=== PATIENT | female | born 1955 | race Caucasian/White ===

== ENCOUNTER 2018-05-17 22:17 | Inpatient (IN) | payer BC ==
[~2018-05-17 22:17] MED LIST: ISOVUE-370 76%-LOCM 1 ML ONE
[2018-05-17] MEDS ORDERED: Ondansetron PF 4 MG/2 ML Vial ONE (22:56)
[2018-05-17] MEDS ORDERED: Morphine 4 MG/ML VIAL ONE (22:56)
[2018-05-17 22:59] LABS: #Eosinphils 0.3 thou/uL (0.0-0.7); #Lymphocytes 1.2 thou/uL (1.20-3.40); #Monocytes 0.8 thou/uL (0.11-0.59); #Neutrophils 9.7 thou/uL (1.40-6.50); %Basophils 0.4 % (0.0-1.0); %Eosinophils 2.3 % (0.0-10.0); %Lymphocytes 9.7 % (21.0-51.0); %Monocytes 6.4 % (0.0-10.0); %Neutrophils 81.2 % (42.0-75.0); Hemoglobin 13.6 g/dL (12.0-16.0); Mean Corpuscular HGB CONC 33.2 g/dL (32.0-36.0); Mean Corpuscular Hemoglobin 29.7 pg (27.0-31.0); Mean Corpuscular Volume 89.4 fL (78.0-98.0); Mean Platelet Volume 7.1 fL (7.4-10.4); Platelet Count 331 thou/uL (130-400); RBC Distribution Width 12.3 % (11.5-14.5); Red Blood Cell (RBC) Count 4.59 mill/uL (4.20-5.40)
[2018-05-17 23:18] LABS: ALT (SGPT) 42 U/L (8-55); AST (SGOT) 26 U/L (5-34); Albumin 4.6 g/dL (3.4-4.8); Alkaline Phosphatase 115 U/L (40-150); Anion Gap 15 mmol/L (10-20); BUN (Urea Nitrogen) 9 mg/dL (9.8-20.1); Bilirubin, Total 0.7 mg/dL (0.2-1.2); Calc. Creatinine Clearance 0 mL/min (70-130); Carbon Dioxide 24 mmol/L (23-31); Chloride 100 mmol/L (98-107); Estimated GFR-MDRD 72; Globulin 2.8 g/dL (2.4-3.5); Glucose 146 mg/dL (80-115); Potassium 3.9 mmol/L (3.5-5.1); Protein, Total 7.4 g/dL (6.0-8.3); Sodium 135 mmol/L (136-145)
[2018-05-17 23:33] LABS: Lipase 5766 U/L (8-78)
[2018-05-17 23:34] LABS: Bilirubin Negative (Negative); Blood, Urine Negative (Negative); Clarity CLEAR (Clear); Glucose, Urine (Dipstick) Negative (Negative); Leukocyte Moderate (Negative); Nitrite Negative (Negative); Protein, Urine (Dipstick) Trace mg/dL (Neg-Trace); Specific Gravity, Urine 1.013 (1.002-1.036); Urobilinogen 0.2 mg/dL (0.2-1.0)
[2018-05-17 23:37] LABS: Bacteria/HPF None Seen HPF (None Seen); Hyaline Casts/LPF 4-6 HYALINE CAST LPF (0-3 Hyaline); RBC/HPF 0-3 HPF (0-3); Squamous Epithelial 0-3 HPF (0-3); WBC/HPF 21-50 HPF (0-3)
--- NOTE | 2018-05-17 23:56 | CT ---
CT OF THE ABDOMEN AND PELVIS WITH IV CONTRAST 05/17/18 INDICATION: History of abdominal pain. FINDINGS: There is mild hazy opacity seen surrounding the pancreas suspicious for pancreatitis. There is mild fatty liver. There is moderate hiatal hernia. Adrenal glands, spleen, and kidneys appea r within normal limits. No drainable fluid collection is evident. There is mild fluid distention of a few loops of small bowel and colon which are nonspecific. There i s scattered diverticula involving the colon. IMPRESSION: 1. Findings suspicious for noncomplicated acute pancreatitis. Recommend correlation with clinica l exam. 2. Fatty liver. 3. Moderate hiatal hernia. 4. Post cholecystectomy. 5. Colonic diverticulosis. POS: [facility]
[2018-05-18] MEDS ORDERED: Ondansetron PF 4 MG/2 ML Vial IVP PRN (01:31)
[2018-05-18] MEDS ORDERED: Morphine 2 MG/ML SYRINGE SLOW IVP PRN (01:41)
--- NOTE | 2018-05-18 01:44 | PDOC.FPRHP ---
- History of Present Illness Chief Complaint: abdominal pain History of Present Illness: Patient is a 62YOF w/ a PMH significant for a previous episode of pancreatitis approximately 4 years ago 2/2 unknown causes who presented to the ED with a CC of abdominal pain that began 2 days ago. The patient reports that she was in her usual state of health until Wednesday morning when she to feel sharp, upper abdominal pain after eating that morning. She stated that the pain was definitely worsened by eating so she limited her PO intake but tried eating again yesterday morning and again had an episode of severe 9/10 upper abdominal pain after eating some peaches and drinking water for breakfast. She then had her take her to an urgent care where she was told she was only constipated and sent home. She then took some milk of Mg at home and had some diarrhea after that and the abdominal pain continued so she came to the ED for further evaluation. She reports some associated nausea but denies any vomiting. She also denies any constipation, fever or chills. Of note, the patient states she was admitted for pancreatitis about 4 years ago and stated that they never figured out what caused her first episode. She denies any EtOH use or FH of pancreatitis and is on crestor for HLD. She has also had a cholecystectomy. ED Course: 4mg IV morphine, 4mg IV zofran, 1L NS - Allergies/Adverse Reactions Allergies Allergy/AdvReac Type Severity Reaction Status Date / Time No Known Allergies Allergy Verified 05/18/18 02:35 - History PMHx: HLD, GERD, hiatal hernia, seasonal allergies, h/o pancreatitis PSHx: cholecystectomy, hysterectomy, ex lap for endometriosis, R-sided lumpectomy, uvulopalatopharyngoplasty, rhinoplasty FHx: Mother: HTN & HLD Social: No EtOH, tobacco or drug use. Lives in [place] with her . 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 - Review of Systems General: reports: weight/appetite/sleep changes. denies: fever/chills Eyes: denies: eye pain, vision changes ENT: reports: other (no sore throat). denies: nasal congestion Respiratory: denies: cough, shortness of breath Cardiovascular: denies: chest pain, palpitation Gastrointestinal: reports: nausea, diarrhea, abdominal pain. denies: vomiting, constipation Genitourinary: reports: other (no urinary frequency). denies: dysuria Skin: denies: rashes Musculoskeletal: denies: pain, arthritis/arthralgias Neurological: denies: numbness, weakness Psychological: denies: anxiety, depression - Vital signs BP: 102/63 HR: 74 RR: 15 Tmax: 98.2F Pox: 97% on RA Wt: 79kg - Physical Exam Constitutional: NAD, awake, alert and oriented, well developed HEENT: normocephalic and atraumatic, grossly normal vision, grossly normal hearing, oropharynx clear, good dention, other (dry mucus membranes) Neck: supple, FROM Heart: RRR, normal S1/S2, pulses present, no edema Lungs: CTAB, no respiratory distress, good air movement, no rales/rhonchi, no wheezing, no retractions Abdomen: soft, no masses/distention, no hernias, other (TTP all across upper abdomen w/ no guarding or rebound; hypoactive bowel sounds) Musculoskeletal: normal structure, ROM grossly normal Neurological: no focal deficit, CN II-XII intact (grossly) Skin: no rash/lesions, good turgor, capillary refill <2 seconds, no jaundice Heme/Lymphatic: no unusual bruising or bleeding, no purpura Psychiatric: normal mood and affect, good judgment and insight, intact recent and remote memory FMR H&P: Results - Labs Result Diagrams: 05/18/18 07:49 05/18/18 07:49 Lab results: WBC 12.0 thou/uL (4.8-10.8) H 05/17/18 22:50 Hgb 13.6 g/dL (12.0-16.0) 05/17/18 22:50 Hct 41.1 % (36.0-47.0) 05/17/18 22:50 MCV 89.4 fL (78.0-98.0) 05/17/18 22:50 Plt Count 331 thou/uL (130-400) 05/17/18 22:50 Neutrophils % 81.2 % (42.0-75.0) H 05/17/18 22:50 Sodium 135 mmol/L (136-145) L 05/17/18 22:41 Potassium 3.9 mmol/L (3.5-5.1) 05/17/18 22:41 Chloride 100 mmol/L (98-107) 05/17/18 22:41 Carbon Dioxide 24 mmol/L (23-31) 05/17/18 22:41 BUN 9 mg/dL (9.8-20.1) L 05/17/18 22:41 Creatinine 0.80 mg/dL (0.6-1.1) 05/17/18 22:41 Glucose 146 mg/dL (80-115) H 05/17/18 22:41 Calcium 10.0 mg/dL (7.8-10.44) 05/17/18 22:41 Total Bilirubin 0.7 mg/dL (0.2-1.2) 05/17/18 22:41 AST 26 U/L (5-34) 05/17/18 22:41 ALT 42 U/L (8-55) 05/17/18 22:41 Alkaline Phosphatase 115 U/L (40-150) 05/17/18 22:41 Serum Total Protein 7.4 g/dL (6.0-8.3) 05/17/18 22:41 Albumin 4.6 g/dL (3.4-4.8) 05/17/18 22:41 Lipase 5766 U/L (8-78) H 05/17/18 22:41 Urine Ketones 40 mg/dL (Negative) H 05/17/18 23:08 Urine Blood Negative (Negative) 05/17/18 23:08 Urine Nitrite Negative (Negative) 05/17/18 23:08 Ur Leukocyte Esterase Moderate (Negative) H 05/17/18 23:08 Urine RBC 0-3 HPF (0-3) 05/17/18 23:08 Urine WBC 21-50 HPF (0-3) H 05/17/18 23:08 Ur Squamous Epith Cells 0-3 HPF (0-3) 05/17/18 23:08 Urine Bacteria None Seen HPF (None Seen) 05/17/18 23:08 - Radiology Interpretation CT scan - abdomen Status: report reviewed by me (suspicious for noncomplicated acute pancreatitis) FMR H&P: A/P - Problem List (1) Acute pancreatitis Current Visit: Yes Status: Acute Code(s): K85.90 - ACUTE PANCREATITIS WITHOUT NECROSIS OR INFECTION, UNSP Qualifiers: Pancreatitis type: idiopathic (2) HLD (hyperlipidemia) Current Visit: Yes Status: Chronic Code(s): E78.5 - HYPERLIPIDEMIA, UNSPECIFIED (3) GERD (gastroesophageal reflux disease) Current Visit: Yes Status: Chronic Code(s): K21.9 - GASTRO-ESOPHAGEAL REFLUX DISEASE WITHOUT ESOPHAGITIS (4) Hiatal hernia Current Visit: Yes Status: Chronic Code(s): K44.9 - DIAPHRAGMATIC HERNIA WITHOUT OBSTRUCTION OR GANGRENE - Plan 62YOF w/ a h/o of a previous episode of pancreatitis as well as chronic GERD & HLD who presented to the ED w/ a CC of abdominal pain x 2 days who was found to have acute pancreatitis on abd/pelvic CT. Acute pancreatitis: - Lipase just over 5k on admission with findings suggestive of noncomplicated pancreatitis noted on Abd/pelvis CT. - Will keep NPO overnight and continue IVFs w/ LR @ 175mL/hr. - Will continue IV morphine and zofran PRN for pain & nausea. - Will continue to monitor vitals closely and get a repeat CBC & CMP in the AM. - Will also order a fasting lipid panel to r/o hypertriglyceridemia as a potential cause although unlikely since patient is on Crestor. Leukocytosis: - WBC slightly elevated at 12.0 on admission. Likely just a leukemoid reaction 2 /2 acute inflammation from pancreatitis. UA only showed signs of slight dehydration and abd CT only showed changes consistent with pancreatitis. - Will continue to monitor w/ QD CBCs. Mild Dehydration: - Decreased PO intake 2/2 worsening abdominal pain w/ eating and drinking. UA significant for ketonuria and mucus membranes were dry on exam. - s/p 1L of NS in the ED. Will continue w/ aggressive IVF resuscitation while NPO for pancreatitis. - Will get strict I&Os and continue to monitor hydration status closely. GERD: - Aware, will hold home pantoprazole due to possibility of it potentially causing pancreatitis & will give IV pepcid while NPO. HLD: - Aware, will hold home Crestor while NPO & due to fact that it could potentially have caused pancreatitis. Hiatal hernia: - Aware, will hold home PPI due to reasons described above. Fatty Liver: - LFTs WNLs. Seen on CT. Will educate on HH, low cholesterol diet. Dispo: Will admit for IVF resuscitation and pain control overnight. Possible d/ c tomorrow if pain better controlled and able to hydrate PO. Abx: None IVFs: LR @ 175mL/hr GI PPx: pepcid DVT PPX: Lovenox CODE STATUS: FULL CODE FMR H&P: Upper Level - Pertinent history 62F seen for abdominal pain of 1 day, with prior history of hiatal hernia and 1x pancreatitis. It is associated with nausea and diarrhea, though that started after she took milk of mag, thinking her abd discomfort was caused by constipation. Pain was exacerbated by eating. She denies alcohol use of family history of pancreatitis. She only takes crestor and pantoprazole. She has had prior cholecystectomy. In ER, she received 1 L NS, 4 mg morphine, 4 mg zofran. - Pertinent findings Gen: Sleep, post morphine HEENT: Normocephalic, moist mucosal membrane, midline trachea CV: RRR with no m/g/r Resp: CTA bilat GI: Soft, normoactive, no guarding, mild tenderneess in epigastric palpation Derm: No rashes or obvious lesions Ext: No pitting edema - Plan Date/Time: 05/18/18 0143 I, [Monroe Velazquez], have evaluated this patient and agree with findings/plan as outlined by validation intern resident. Pertinent changes/additions are listed here. 1. Idiopathic Pancreatitis - Consider medication induce. Both pantoprazole and crestor are possible causes. Will hold both at this time - Considered obstruction but unlikely. No gallbladder. CT scan didn't comment on dilated common bile duct or pancreatic mass. - Consider hypertrig: Get morning fasting lipid panel - Consider autoimmune: Patient doesn't have other autoimmune symptom. Only episode of pancreatitis so far. Could consider IgG4 for further work up. - Unlikely alcohol. Patient denies. LFT are normal. - Plan for fluid, pain control at this time. Advance to low fat diet as tolerated. - Ramson score 1 for age. LDH pending. Even if positive, at most 2 point, appropriate for floor. 2. Sterile Pyruia - Patient asymptomatic - Increased wbc may be from pancreatic inflammatory state. No further work up unless symptomatic. Addendum - Attending - Attending Attestation Date/Time: 05/18/18 8319 I personally evaluated the patient and discussed the management with Dr. Chritsensen/ Caroline. I agree with the History, Examination, Assessment and Plan documented above with any addition or exceptions noted below. Patient here clinically with pancreatitis. Pain well controlled at this time. Fluid hydrate, bowel rest, and pain control. Check labs to see if we can identify a cause but seems either medication induced or possibly idiopathic. BISAP score 1. Inpatient status and monitor.
[2018-05-18] MEDS ORDERED: Sodium Chloride 0.9% 1,000 ML IV SCH (01:45)
[2018-05-18 01:58] LABS: Magnesium 2.7 mg/dL (1.6-2.6); Phosphorus 2.6 mg/dL (2.3-4.7)
[2018-05-18] MEDS ORDERED: Sodium Chloride 0.9% (PF) 10 ML VIAL FS PRN (02:27)
[2018-05-18 02:35] VITALS: BMI 32.8
[2018-05-18] MEDS: Lactated Ringer's 1,000 ML IV SCH ×4 (02:43→21:09)
[2018-05-18 08:29] LABS: #Eosinphils 0.1 thou/uL (0.0-0.7); #Lymphocytes 1.5 thou/uL (1.20-3.40); #Monocytes 0.8 thou/uL (0.11-0.59); #Neutrophils 7.4 thou/uL (1.40-6.50); %Basophils 0.4 % (0.0-1.0); %Eosinophils 1.2 % (0.0-10.0); %Lymphocytes 14.9 % (21.0-51.0); %Monocytes 8.3 % (0.0-10.0); %Neutrophils 75.2 % (42.0-75.0); Hemoglobin 11.4 g/dL (12.0-16.0); Mean Corpuscular HGB CONC 32.5 g/dL (32.0-36.0); Mean Corpuscular Hemoglobin 29.6 pg (27.0-31.0); Mean Platelet Volume 7.5 fL (7.4-10.4); Platelet Count 295 thou/uL (130-400); RBC Distribution Width 12.3 % (11.5-14.5); Red Blood Cell (RBC) Count 3.84 mill/uL (4.20-5.40); White Blood Cell (WBC) Count 9.8 thou/uL (4.8-10.8)
[2018-05-18] MEDS: Famotidine/PF 20 mg/2ml Vial SLOW IVP SCH ×2 (08:47→21:09)
[2018-05-18] MEDS: Enoxaparin Sodium 40 MG/0.4 ML SYRINGE SC SCH (08:47)
[2018-05-18 08:49] LABS: ALT (SGPT) 63 U/L (8-55); AST (SGOT) 55 U/L (5-34); Albumin 3.8 g/dL (3.4-4.8); Alkaline Phosphatase 112 U/L (40-150); Anion Gap 11 mmol/L (10-20); BUN (Urea Nitrogen) 8 mg/dL (9.8-20.1); Bilirubin, Total 0.8 mg/dL (0.2-1.2); Calc. Creatinine Clearance 106 mL/min (70-130); Calcium 9.1 mg/dL (7.8-10.44); Carbon Dioxide 24 mmol/L (23-31); Chloride 106 mmol/L (98-107); Cholesterol 136 mg/dl (< 200 Desired); Estimated GFR-MDRD 83; Globulin 2.3 g/dL (2.4-3.5); Glucose 107 mg/dL (80-115); HDL Cholesterol 46 mg/dL (>60 Neg Risk); LDL Cholesterol, Calculated 74 mg/dL; Protein, Total 6.1 g/dL (6.0-8.3); Sodium 137 mmol/L (136-145); Triglycerides 81 mg/dL (Less than 150)
[2018-05-18] MEDS ORDERED: Pantoprazole 40 MG VIAL IVP SCH (09:00)
[2018-05-19] MEDS: Lactated Ringer's 1,000 ML IV SCH ×2 (01:37→04:33)
--- NOTE | 2018-05-19 06:22 | PDOC.FM ---
- Subjective Subjective: Reports resolution of pain. Was able to tolerate clear liquid diet yesterday and has ordered something heavier this morning for breakfast. Had some diarrhea overnight and thinks it may be related to the lactated ringers, requested to hold off on it for a little bit to see if she has improved symptoms. No overnight events otherwise. - Objective MAR Reviewed: Yes Vital Signs & Weight: Vital Signs (12 hours) Temp Pulse Resp BP Pulse Ox 05/18/18 20:00 96 05/18/18 19:40 97.9 F 79 18 120/75 95 Weight Admit Weight 83.96 kg Weight 83.96 kg I&O: 05/17/18 05/18/18 05/19/18 06:59 06:59 06:59 Intake Total 5 Balance 5 Result Diagrams: 05/18/18 07:49 05/18/18 07:49 Phys Exam - Physical Examination Constitutional: NAD HEENT: moist MMs, sclera anicteric Neck: supple Respiratory: no wheezing, clear to auscultation bilateral Cardiovascular: RRR, no significant murmur Gastrointestinal: soft, non-tender, positive bowel sounds Musculoskeletal: no edema Neurological: non-focal Psychiatric: normal affect, A&O x 3 Skin: normal turgor Dx/Plan (1) Acute pancreatitis Code(s): K85.90 - ACUTE PANCREATITIS WITHOUT NECROSIS OR INFECTION, UNSP Status: Acute Qualifiers: Pancreatitis type: idiopathic (2) Sterile pyuria Code(s): N39.0 - URINARY TRACT INFECTION, SITE NOT SPECIFIED Status: Acute (3) GERD (gastroesophageal reflux disease) Code(s): K21.9 - GASTRO-ESOPHAGEAL REFLUX DISEASE WITHOUT ESOPHAGITIS Status: Chronic (4) HLD (hyperlipidemia) Code(s): E78.5 - HYPERLIPIDEMIA, UNSPECIFIED Status: Chronic (5) Hiatal hernia Code(s): K44.9 - DIAPHRAGMATIC HERNIA WITHOUT OBSTRUCTION OR GANGRENE Status: Chronic - Plan Plan: 62yo female with a pmh of a previous episode of pancreatitis as well as chronic GERD & HLD who presented to the ED w/ a CC of abdominal pain x 2 days who was found to have acute pancreatitis on abd/pelvic CT. Acute pancreatitis - Lipase 5766 & findings suggestive of noncomplicated pancreatitis noted on Abd/ pelvis CT - Initial [place] 1 - Workup neg 4 years ago for cause. Hx of eduar, no alcohol use, no known autoimmune condition, does not drink alcohol - LR @175mls - Clear liquid advance as tolerated - IV morphine 2mg PRN and zofran PRN for pain & nausea Leukocytosis - 12.0 on admission. - Likely leukemoid reaction 2/2 acute inflammation from pancreatitis - UA only showed signs of slight dehydration and abd CT only showed changes consistent with pancreatitis. - Will continue to monitor w/ QD CBCs. Mild Dehydration, resolved Sterile Pyuria - asymptomatic GERD - Holding home pantoprazole, potentially caused pancreatitis - Continue pepcid, pt reports good response HLD - FLP preformed - Hold home Crestor, potentially caused pancreatitis. Hiatal hernia - Manage as above, GERD Fatty Liver - Visualized on CT - LFTs snl - HH, low cholesterol diet Code Status: FULL DVT ppx: Lovenox GI ppx: pepcid Addendum - Attending - Attending Attestation Date/Time: 05/19/18 1279 I personally evaluated the patient and discussed the management with Dr. Okeefe. I agree with the History, Examination, Assessment and Plan documented above with any addition or exceptions noted below. Patient doing well. Pain resolved and able to tolerate small diet this morning. If tolerates lunch, should be stable for dc home to advance diet as tolerated. Labs stable.
[2018-05-19 07:36] VITALS: BP 103/65; TEMP 97.6
[2018-05-19] MEDS: Enoxaparin Sodium 40 MG/0.4 ML SYRINGE SC SCH (08:26)
[2018-05-19] MEDS ORDERED: Famotidine 20 MG TAB PO SCH (09:00)
--- NOTE | 2018-05-20 04:52 | DIS ---
DATE OF ADMISSION: 05/18/2018 DATE OF DISCHARGE: 05/19/2018 ADMITTING ATTENDING: Luis Enrique Campa MD. DISCHARGE ATTENDING: Luis Enrique Campa MD. CONSULTS: None. PROCEDURES: Abdomen and pelvis CT; findings suspicious for noncomplicated acute pancreatitis. Recommend correlation with clinical exam. Fatty liver. Moderate hiatal hernia. Post cholecystectomy. Colonic diverticulosis. PRIMARY DIAGNOSIS: Acute pancreatitis. SECONDARY DIAGNOSES: 1. Leukocytosis. 2. Mild dehydration, resolved. 3. Sterile pyuria. 4. Gastroesophageal reflux disease. 5. Hyperlipidemia. 6. Hiatal hernia. 7. Fatty liver. DISCHARGE MEDICATIONS: Pepcid 20 mg b.i.d. DISCONTINUED MEDICATIONS: 1. Pantoprazole 40 mg daily. 2. Crestor 10 mg daily. HISTORY OF PRESENT ILLNESS/HOSPITAL COURSE: Ms. Root is a 62-year-old female with a past medical history of pancreatitis four years ago, worked up with unknown cause. She presented to the ED with chief complaint of abdominal pain two days duration. CT showed finding consistent with pancreatitis. Labs were notable for an elevated lipase 5766. She had a leukocytosis 12.0. Her UA was notable for ketones 40, leukocyte esterase moderate, urine white blood cell count 21-50, hyaline casts 4-6. The patient denied any urinary symptoms. In the ED, she received 4 mg IV morphine, 4 mg IV Zofran, 1 L normal saline. Vital signs were stable. She was afebrile for her acute pancreatitis. She was made n.p.o. and put on LR at 175, given IV morphine and Zofran p.r.n. She did not require any morphine for pain relief after the dose in the emergency room department. Fasting lipid panel was unremarkable. The patient's Crestor and pantoprazole were held because they can potentially cause pancreatitis. The patient was instead started on Pepcid 20 mg b.i.d., this controlled her GERD symptoms. Her leukocytosis trended down to 9.8. She was able to tolerate liquid diet for dinner that night and full diet the morning of discharge. She was able to tolerate breakfast and lunch, regular diet prior to discharge. She was found to have a fatty liver on the abdominal CT, although LFTs were within normal limits. Educated on heart healthy, low-cholesterol diet. The patient can be followed up for her GERD and fatty liver symptoms as an outpatient. DISPOSITION: Stable. DISCHARGE INSTRUCTIONS: 1. Location: Home. 2. Diet: Advance as tolerated. 3. Activity: No restrictions. 4. Followup: Follow up with Dr. Okeefe in clinic within 3-7 days. Job ID: [id number]
--- NOTE | 2018-05-21 13:13 | EKG ---
Test Reason : Blood Pressure : / mmHG Vent. Rate : 073 BPM Atrial Rate : 073 BPM P-R Int : 152 ms QRS Dur : 084 ms QT Int : 416 ms P-R-T Axes : 032 -15 003 degrees QTc Int : 458 ms Normal sinus rhythm Possible Left atrial enlargement Left ventricular hypertrophy Abnormal ECG Confirmed by BRAIN SILVA DO ([id number]), film and video editor VINCENT BENSON ([id number] on 05/21/2018 1:12:58 PM Referred By: Confirmed By:BRAIN SILVA DO
== END 2018-05-19 16:33 | disposition home or self-care (01) | DRG 440 ==
LOC: ERS 22:17 → T4-B 05-18 00:48 → OBSVTOIN 05-18 09:20
PROVIDERS: ADMIT Emergency Medicine; ATTEND Emergency Medicine
DX: K85.90 Acute pancreatitis without necrosis or infection, unspecified (principal); K76.0 Fatty (change of) liver, not elsewhere classified; E78.5 Hyperlipidemia, unspecified; E86.0 Dehydration; K21.9 Gastro-esophageal reflux disease without esophagitis; R19.7 Diarrhea, unspecified; D72.829 Elevated white blood cell count, unspecified; Z85.3 Personal history of malignant neoplasm of breast; Z90.49 Acquired absence of other specified parts of digestive tract; Z82.49 Family history of ischemic heart disease and other diseases of the circulatory system
CPT/HCPCS: 36415; 74177; 80053; 80061; 81003; 81015; 83615; 83690; 83735; 84100; 85025; 93005; 96361; 96374; 96375; J1650; J2270; J2405; Q9966; S0028

== ENCOUNTER 2019-05-04 15:26 | Emergency (ER) | payer MEDICARE, BC ==
[2019-05-04 17:02] LABS: #Basophils 0.1 thou/uL (0.0-0.2); #Eosinphils 0.3 thou/uL (0.0-0.7); #Lymphocytes 1.6 thou/uL (1.20-3.40); #Monocytes 0.8 thou/uL (0.11-0.59); #Neutrophils 2.5 thou/uL (1.40-6.50); %Basophils 1.1 % (0.0-1.0); %Eosinophils 5.6 % (0.0-10.0); %Lymphocytes 30.2 % (21.0-51.0); %Monocytes 14.8 % (0.0-10.0); %Neutrophils 48.3 % (42.0-75.0); Hemoglobin 14.4 g/dL (12.0-16.0); Mean Corpuscular HGB CONC 31.9 g/dL (32.0-36.0); Mean Corpuscular Hemoglobin 28.2 pg (27.0-31.0); Mean Corpuscular Volume 88.5 fL (78.0-98.0); Mean Platelet Volume 7.7 fL (7.4-10.4); Platelet Count 278 thou/uL (130-400); RBC Distribution Width 12.7 % (11.5-14.5); Red Blood Cell (RBC) Count 5.11 mill/uL (4.20-5.40); White Blood Cell (WBC) Count 5.3 thou/uL (4.8-10.8)
[2019-05-04 17:26] LABS: BUN (Urea Nitrogen) 16 mg/dL (9.8-20.1); Globulin 3.6 g/dL (2.4-3.5); Glucose 80 mg/dL (80-115); Lipase 23 U/L (8-78); Potassium 4.7 mmol/L (3.5-5.1); Protein, Total 8.2 g/dL (6.0-8.3); Sodium 135 mmol/L (136-145)
[2019-05-04 18:44] LABS: Albumin 4.6 g/dL (3.4-4.8)
[2019-05-04 18:45] LABS: Chloride 102 mmol/L (98-107)
[2019-05-04 18:46] LABS: Calcium 9.4 mg/dL (7.8-10.44)
[2019-05-04 18:48] LABS: Anion Gap 19 mmol/L (10-20); Bilirubin, Total 0.3 mg/dL (0.2-1.2); Carbon Dioxide 18 mmol/L (23-31)
[2019-05-04 18:49] LABS: Alkaline Phosphatase 151 U/L (40-110)
[2019-05-04 18:50] LABS: Calc. Creatinine Clearance 0 mL/min (70-130); Estimated GFR-MDRD 72
[2019-05-04 18:51] LABS: AST (SGOT) 74 U/L (5-34)
[2019-05-04 18:52] LABS: ALT (SGPT) 81 U/L (8-55)
== END 2019-05-04 19:18 | disposition home or self-care (01) ==
LOC: ERS 15:26
DX: R07.89 Other chest pain (principal); K21.9 Gastro-esophageal reflux disease without esophagitis; E78.5 Hyperlipidemia, unspecified; E78.00 Pure hypercholesterolemia, unspecified; R19.7 Diarrhea, unspecified
CPT/HCPCS: 36415; 80053; 83690; 85025; 99283

== ENCOUNTER 2019-05-08 08:08 | Outpatient (CLI) | payer MEDICARE, BC ==
--- NOTE | 2019-05-08 08:43 | ULT ---
ABDOMINAL ULTRASOUND HISTORY: Right upper quadrant abdominal pain. FINDINGS: Liver: Increased echogenicity suggesting diffuse fatty infiltration. No focal hepatic lesion is seen. Gallbladder: Not visualized compatible with patient's history of prior cholecystectomy. Common duct: Common duct is normal in caliber measuring 0.4 cm in diameter. Pancreas: The limited visualized pancreas demonstrates a normal sonographic appearance. IVC: Limited visualized IVC has a normal sonographic appearance. Aorta: The aorta is normal in caliber. Spleen: Within normal limits. Kidneys: Kidneys demonstrate a normal sonographic appearance bilaterally with the right kidney measur ing 11.6 cm in length, and the left kidney measures 10 cm in length. IMPRESSION: 1. Fatty infiltration of the liver. 2. Cholecystectomy.
== END 2019-05-08 08:09 | disposition home or self-care (01) ==
LOC: BICULT 08:08
PROVIDERS: ATTEND Family Medicine
DX: R10.11 Right upper quadrant pain (principal); K76.0 Fatty (change of) liver, not elsewhere classified; Z90.49 Acquired absence of other specified parts of digestive tract
CPT/HCPCS: 77063; 77067; 93975

== ENCOUNTER → 2019-06-22 | Outpatient (CLI) | payer MEDICARE, BC ==
[~2019-06-22] MED LIST changes: -ISOVUE-370 76%-LOCM 1 ML ONE; +Magnevist 469MG/ML 20 ML VIAL ONE
--- NOTE | 2019-06-22 10:22 | MRI ---
MRI OF THE ABDOMEN WITHOUT AND WITH CONTRAST: HISTORY: Pancreatitis that she had 3 years ago. The patient has had a cholecystectomy. TECHNIQUE: Multiplanar, multisequence MR images were obtained of the abdomen without and with IV contrast. MRCP images were performed. FINDINGS: The gallbladder has been removed. No biliary dilatation is seen. The liver, kidneys, adrenal glands, spleen, and pancreas are unremarkable. No enhancing pancreatic m ass is seen and there is no pancreatic ductal dilatation. There is a moderate hiatal hernia. No abdominal adenopathy is seen. No marrow signal abnormality is present. IMPRESSION: 1. Status post cholecystectomy; no significant biliary abnormality. 2. Hiatal hernia. POS: [facility]
== END ==
LOC: BICMRI 07:30
PROVIDERS: ATTEND Internal Medicine Gastroenterology
DX: Z12.11 Encounter for screening for malignant neoplasm of colon (principal); K85.90 Acute pancreatitis without necrosis or infection, unspecified; R10.11 Right upper quadrant pain; K76.0 Fatty (change of) liver, not elsewhere classified; K21.9 Gastro-esophageal reflux disease without esophagitis; K44.9 Diaphragmatic hernia without obstruction or gangrene; Z90.49 Acquired absence of other specified parts of digestive tract
CPT/HCPCS: 74183; 82565; A9579

== ENCOUNTER 2020-07-05 09:31 | Outpatient (CLI) | payer MEDICARE | END 2020-07-05 09:32 | disposition home or self-care (01) | LOC: BICMAMMO 09:31 | PROVIDERS: ATTEND Family Medicine | DX: Z12.31 Encounter for screening mammogram for malignant neoplasm of breast (principal); Z91.89 Other specified personal risk factors, not elsewhere classified; Z80.3 Family history of malignant neoplasm of breast | CPT/HCPCS: 77063; 77067 ==

== ENCOUNTER 2021-08-26 10:40 | Outpatient (CLI) | payer MEDICARE | END 2021-08-26 10:41 | disposition home or self-care (01) | LOC: BICMAMMO 10:40 | PROVIDERS: ATTEND Internal Medicine | DX: Z12.31 Encounter for screening mammogram for malignant neoplasm of breast (principal); Z85.3 Personal history of malignant neoplasm of breast; Z98.890 Other specified postprocedural states | CPT/HCPCS: 77063; 77067 ==

== ENCOUNTER 2023-03-17 12:50 | Outpatient (CLI) | payer MEDICARE | END 2023-03-17 12:51 | disposition home or self-care (01) | LOC: BICMAMMO 12:50 | PROVIDERS: ATTEND Family Medicine | DX: Z12.31 Encounter for screening mammogram for malignant neoplasm of breast (principal); Z98.890 Other specified postprocedural states; Z85.3 Personal history of malignant neoplasm of breast | CPT/HCPCS: 77063; 77067 ==

== ENCOUNTER 2023-10-01 13:03 | Outpatient (CLI) | payer MEDICARE | END 2023-10-01 13:04 | disposition home or self-care (01) | LOC: BICMAMMO 13:03 | PROVIDERS: ATTEND Family Medicine | DX: Z13.820 Encounter for screening for osteoporosis (principal); Z78.0 Asymptomatic menopausal state | CPT/HCPCS: 77080 ==